=== PATIENT | female | born 1995 | race Caucasian/White ===

== ENCOUNTER 2016-12-20 19:36 | Emergency (ER) | payer BC ==
[~2016-12-20] VITALS: Ht 157.5 cm; Wt 84.1 kg
[2016-12-20 19:40] VITALS: TEMP 99.7
[2016-12-20 20:44] VITALS: BP 134/67; PULSE 87
== END 2016-12-20 20:43 | disposition home or self-care (01) ==
LOC: COL.ER 19:36
DX: J02.9 Acute pharyngitis, unspecified (principal)